=== PATIENT | female | born 2000 | race Caucasian/White ===

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

== ENCOUNTER → 2021-01-10 | Outpatient (REF) | payer OTHER ==
[2021-01-10 18:14] LABS: HEMATOCRIT 35.5 % (36.0-47.0); HEMOGLOBIN 12.3 g/dl (12.0-15.5); MEAN CORPUSCULAR HEMOGLOBIN 30.9 pg (27.0-33.0); MEAN CORPUSCULAR HGB CONC 34.6 g/dl (32.0-36.5); MEAN CORPUSCULAR VOLUME 89.2 fl (80.0-96.0); PLATELET COUNT, AUTOMATED 346 10^3/uL (150-450); RED BLOOD COUNT 3.98 10^6/uL (4.00-5.40); WHITE BLOOD COUNT 9.3 10^3/uL (4.0-10.0)
[2021-01-10 19:58] LABS: HEPATITIS C VIRUS ABY INDEX < 0.0 INDEX (<0.8)
[2021-01-13 09:08] LABS: HIV 1&2 SCREEN CENTAUR NEGATIVE (NEGATIVE)
== END ==
LOC: M PLALAB 15:16
PROVIDERS: ATTEND Obstetrics & Gynecology
DX: Z36.89 Encounter for other specified antenatal screening (principal); Z3A.09 9 weeks gestation of pregnancy

== ENCOUNTER → 2021-01-10 | Outpatient (CLI) | payer OTHER | LOC: M PLALAB 15:18 | PROVIDERS: ATTEND Allergy & Immunology Allergy | DX: T78.07XA Anaphylactic reaction due to milk and dairy products, initial encounter (principal) ==

== ENCOUNTER → 2021-01-13 | Outpatient (CLI) | payer OTHER | LOC: M PLALAB 13:27 | PROVIDERS: ATTEND Obstetrics & Gynecology | DX: Z34.82 Encounter for supervision of other normal pregnancy, second trimester (principal) ==

== ENCOUNTER → 2021-03-10 | Outpatient (CLI) | payer OTHER ==
--- NOTE | 2021-03-12 08:15 | REP ---
INDICATION: ANATOMY COMPARISON: None. TECHNIQUE: Transabdominal obstetrical ultrasound with color Doppler evaluation. FINDINGS: Examination demonstrates a single live intrauterine in cephalic presentation. motion is identified by technologist. Placenta is noted anterior and grade 0 without evidence for placenta previa or abruption. Amniotic fluid volume is normal. Cervix measures 4.5 cm in length and appears closed.. Selected gestational age: 21 weeks 3 days with TEQUILA 07/18/2021. Gestational age by current measurements 21 weeks 5 days with TEQUILA 07/16/2021. FHR equals 149 beats per minute. Estimated weight 445 grams (60thpercentile). Anatomical assessment demonstrates normal structures including cranium, choroid plexus, cavum, cerebellum/posterior fossa, facial features, lungs, four-chamber heart/ventricular outflow tracts, diaphragm, stomach, cord insertion/three-vessel cord, kidneys/bladder, spine, and extremities. IMPRESSION: Single live intrauterine in cephalic presentation demonstrating appropriate estimated weight anatomical assessment is complete and normal. <Electronically signed by Reed Ambrose > 03/12/21 [id number]
== END ==
LOC: M WHC 15:11
PROVIDERS: ATTEND Advanced Practice Midwife
DX: Z34.82 Encounter for supervision of other normal pregnancy, second trimester (principal)

== ENCOUNTER 2021-04-14 19:48 | Outpatient (CLI) | payer OTHER ==
[2021-04-14 20:01] VITALS: BP 109/63
[2021-04-14 21:16] LABS: HEMATOCRIT 31.7 % (36.0-47.0); HEMOGLOBIN 11.1 g/dl (12.0-15.5); MEAN CORPUSCULAR HEMOGLOBIN 31.6 pg (27.0-33.0); MEAN CORPUSCULAR VOLUME 90.3 fl (80.0-96.0); PLATELET COUNT, AUTOMATED 299 10^3/uL (150-450); RED BLOOD COUNT 3.51 10^6/uL (4.00-5.40); WHITE BLOOD COUNT 11.1 10^3/uL (4.0-10.0)
--- NOTE | 2021-04-14 22:40 | REPVR ---
PROCEDURE INFORMATION: Exam: US Biophysical Profile Without Non-Stress Test Exam date and time: 04/14/2021 10:13 PM Age: 21 years old Clinical indication: Other: Fall; ; Additional info: Post fall TECHNIQUE: Imaging protocol: US biophysical profile without non-stress testing. COMPARISON: OBS COMPLETE US 03/10/2021 3:20 PM FINDINGS: heart rate: heartbeat of 139 bpm. Presentation: Single live intrauterine fetus in breech presentation. Placenta: Anterior placenta. Amniotic fluid index: Normal CAESAR of 19.5 cm. BIOPHYSICAL PROFILE: Breathin/2 Gross body movements: 2/2 tone: 2/2 Qualitative amniotic fluid: 2/2 Biophysical Profile Score: 8/8 MATERNAL ANATOMY: Cervix: Closed cervix measuring 4.0 cm. Other findings: S/D of 3.0. IMPRESSION: 1. Single live intrauterine fetus in breech presentation. 2. Normal biophysical profile score of 8/8. Electronically signed by: Rene Dockery On 04/14/2021 22:40:18 PM
--- NOTE | 2021-04-14 23:27 | IPNPDOC ---
Text Note Date of Service The patient was seen on 04/14/21. NOTE Outpatient 21yo EDD1. Presents @ 26w3d post trip and fall. Reports landing on elbows and knees, uncertain if she hit her abdomen. Reports right abdominal discomfort. Denies LOF, bleeding. No distress. Abdomen soft, gravid FH reassuring for gestation for prolonged monitoring. No UC BPP 8/8, CAESAR 19.7. No evidence abruption KB negative Discharged home. Routine precautions. Keep next appt VS,Jacob, I+O VS, Jacob, I+O Laboratory Tests 04/14/21 21:09 Irma Gregg CNM Apr 14, 2021 23:27
== END 2021-04-14 23:25 | disposition home or self-care (01) ==
LOC: M LDO 19:48
PROVIDERS: ATTEND Advanced Practice Midwife
DX: O9A.212 Injury, poisoning and certain other consequences of external causes complicating pregnancy, second trimester (principal); S80.01XA Contusion of right knee, initial encounter; S80.02XA Contusion of left knee, initial encounter; S50.01XA Contusion of right elbow, initial encounter; S50.02XA Contusion of left elbow, initial encounter; W01.0XXA Fall on same level from slipping, tripping and stumbling without subsequent striking against object, initial encounter; Y92.009 Unspecified place in unspecified non-institutional (private) residence as the place of occurrence of the external cause; O26.892 Other specified pregnancy related conditions, second trimester; R10.9 Unspecified abdominal pain; Z3A.26 26 weeks gestation of pregnancy; O32.1XX0 Maternal care for breech presentation, not applicable or unspecified

== ENCOUNTER → 2021-05-19 | Outpatient (CLI) | payer OTHER ==
[2021-05-19 16:03] LABS: HEMATOCRIT 32.9 % (36.0-47.0); HEMOGLOBIN 10.8 g/dl (12.0-15.5); MEAN CORPUSCULAR HEMOGLOBIN 29.5 pg (27.0-33.0); MEAN CORPUSCULAR HGB CONC 32.8 g/dl (32.0-36.5); MEAN CORPUSCULAR VOLUME 89.9 fl (80.0-96.0); PLATELET COUNT, AUTOMATED 309 10^3/uL (150-450); RED BLOOD COUNT 3.66 10^6/uL (4.00-5.40); WHITE BLOOD COUNT 14.9 10^3/uL (4.0-10.0)
[2021-05-19 17:09] LABS: GC DNA AMPLIFICATION NEGATIVE (NEGATIVE)
== END ==
LOC: M PLALAB 13:03
PROVIDERS: ATTEND Advanced Practice Midwife
DX: Z34.82 Encounter for supervision of other normal pregnancy, second trimester (principal); Z3A.26 26 weeks gestation of pregnancy

== ENCOUNTER → 2021-06-27 | Outpatient (REF) | payer OTHER | LOC: M SFHCWAGY 17:16 | PROVIDERS: ATTEND Advanced Practice Midwife | DX: Z34.03 Encounter for supervision of normal first pregnancy, third trimester (principal) ==

== ENCOUNTER 2021-07-08 12:37 | Inpatient (IN) | payer OTHER ==
[~2021-07-08] VITALS: Ht 160 cm; Wt 77.2 kg
[2021-07-08 12:56] VITALS: BP 120/80
[2021-07-08] MEDS ORDERED: PENICILLIN G POTASSIUM IV 5 MU in D5W MINI-BAG PLUS 100 ML IV STA (16:52)
--- NOTE | 2021-07-08 16:59 | HPEPDOC ---
Obstetrical History & Physical General Date of Admission Jul 08, 2021 at 16:40 History of Present Illness 21 yo G1 at 38 4/7 weeks by LMP c/w 9 week ultrasound (EDC=07/18/2021) presents with regular contractions forthe last several hours. No loss of fluid. Small amount of vaginal bleeding. Information Provided By: Patient Age: 21 : 1 Term: 0 Pre-term: 0 Abortions: 0 Livin Care Care: Good Care Dating Final EDC: Jul 18, 2021 Final EDC by: LMP, 1st trimester (US) Past Medical History Past Obstetrical History : Past Obstetrical History: Primgravida Past Medical History Medical History None Surgical History: Denies/None Family History Significant Family History: No pertinent family hx Social History Marital Status: Single Family situation: Spouse/partner home Psychosocial History: No pertinent psych hx Allergies Coded Allergies: lactose (Verified Allergy, Unknown, 07/08/21) Medications No Active Prescriptions or Reported Meds Physical Examination Physical Examination GENERAL: Alert and oriented times three. BREAST: . ABDOMEN: Gravid and non-tender to touch. FETUS: Is vertex (VTX) by sterile vaginal examination (SVE), fetus is vertex (VTX) by Garret. HEART RATE: Regular rate and rhythm. LUNGS: Clear to auscultation (CTA). EXTREMITIES: No edema. No clonus. Deep tendon reflexes (DTRs) + . Vital Signs/I&O Vital Signs Date Time Temp Pulse Resp B/P (MAP) Pulse Ox O2 Delivery O2 Flow Rate FiO2 07/08/21 12:56 98.6 83 18 120/80 (93) Pertinent Laboratoy Data Blood Type: O+ Group B Streptococcus: Negative Vaginal Examination Dilation: 4 cm Effacement: 90% Station: -2 Cervical Consistency: Medium Cervical Position: Posterior Presentation: Cephalic presentation Assessment Variability: Moderate Accelerations: Positive Decelerations: None Tocometer Contractions: Yes Assessment/Plan Assessment Pt is a 21-year-old (G)1 para (P)0 at 38+4 weeks by LMP c/w 9 -week ultrasound presents to Labor and Delivery in labor. Plan Admit and orient. Stuntman and consent. Diet: liquids. Group B Streptococcus (GBS)positive Labs and intravenous (IV) per unit protocol. Anticipate normal spontaneous delivery () C-S as appropriate. LILIAN CHAPARRO MD Jul 08, 2021 16:59
[2021-07-08] MEDS ORDERED: LR 1,000 ML IV SCH (17:15)
[2021-07-08 17:39] LABS: HEMATOCRIT 36.8 % (36.0-47.0); HEMOGLOBIN 12.1 g/dl (12.0-15.5); MEAN CORPUSCULAR HEMOGLOBIN 27.8 pg (27.0-33.0); MEAN CORPUSCULAR HGB CONC 32.9 g/dl (32.0-36.5); MEAN CORPUSCULAR VOLUME 84.6 fl (80.0-96.0); PLATELET COUNT, AUTOMATED 262 10^3/uL (150-450); RED BLOOD COUNT 4.35 10^6/uL (4.00-5.40); WHITE BLOOD COUNT 12.4 10^3/uL (4.0-10.0)
[2021-07-08] MEDS ORDERED: OXYTOCIN DRIP 30 UNITS in IV 1 EA IV SCH (20:00)
[2021-07-08] MEDS ORDERED: PENICILLIN G POTASSIUM IV 2.5 MU in IV 1 EA IV SCH (21:15)
[2021-07-08] MEDS ORDERED: PROMETHAZINE INJ 25 MG/ML VIAL (J2550) IV ONE (23:05)
[2021-07-08] MEDS ORDERED: BUTORPHANOL 2 MG/ML INJ (J0595) IV ONE (23:05)
[2021-07-09] MEDS ORDERED: LIDOCAINE 1% MDV 20ML VIAL As Ordered ONE (03:28)
[2021-07-09] MEDS ORDERED: LIDOCAINE 1% MDV 20ML VIAL INFIL ONE (04:00)
[2021-07-09] MEDS ORDERED: MEASLES,MUMPS,RUBELLA VACCINE INJ (MMR-II) (90707) SC SCH (04:00)
[2021-07-09] MEDS ORDERED: OXYTOCIN DRIP 30 UNITS in IV 1 EA IV ONE (04:00)
[2021-07-09] MEDS ORDERED: ACETAMINOPHEN 500 MG TAB PO PRN (04:00)
[2021-07-09] MEDS ORDERED: DOCUSATE SODIUM 100MG CAPSULE PO PRN (04:00)
[2021-07-09] MEDS ORDERED: IBUPROFEN 600MG TAB PO PRN (04:00)
[2021-07-09] MEDS ORDERED: METHYLERGONOVINE MALEATE 0.2 MG TAB PO PRN (04:00)
[2021-07-09] MEDS ORDERED: RHOGAM 300 MCG (1500 IU) INJ (J2790) IM SCH (04:00)
[2021-07-09] MEDS ORDERED: ACETAMINOPHEN TAB 650MG DOSE (2X325MG) PO PRN (04:00)
--- NOTE | 2021-07-09 04:04 | DNPDOC ---
[facility] Delivery Note Delivery Note DATE OF DELIVERY: July 092020 PREDELIVERY DIAGNOSIS: 38-4/7 weeks' gestation and labor. POST DELIVERY DIAGNOSIS: Delivered. PROCEDURE: Spontaneous vaginal delivery. TICK ERADICATOR: Dr. Lilian Chaparro MD ANESTHESIA: None ESTIMATED BLOOD LOSS: 300 mL. FINDINGS: 6 pound 9 ounce female , Score 8/9, nuchal cord times 1. DELIVERY SUMMARY: Patient is a 21-year-old 1 now para 1 who was admitted to labor and delivery for labor. She required Pitocin augmentation. She progressed to become fully dilated. She had spontaneous rupture of membranes. After a 15-minute second stage of labor she had spontaneous vaginal delivery of a 6 pound 9 ounce female . Loose nuchal cord x1 was delivered through. Shoulders delivered with ease. The was handed to the mother. The cord subsequently clamped and cut. The placenta delivered spontaneously and appeared to be intact. The patient received IV Pitocin immediately after delivery of placenta. Second-degree perineal laceration repaired under local anesthesia with 2-0 chromic in the usual fashion. Sponge and needle counts were correct. LILIAN CHAPARRO MD Jul 09, 2021 04:04
[2021-07-09 06:00] VITALS: BP 124/80
[2021-07-09] MEDS: PRENATAL VITAMINS CHEWABLE TABLET PO SCH (09:04)
[2021-07-09] MEDS: IBUPROFEN 800 MG TAB PO PRN (14:07)
[2021-07-09 18:02] VITALS: BP 144/81
[2021-07-10 06:00] VITALS: BP 110/56
[2021-07-10] MEDS: PRENATAL VITAMINS CHEWABLE TABLET PO SCH (07:49)
[2021-07-10] MEDS: IBUPROFEN 800 MG TAB PO PRN (07:49)
[2021-07-10 08:10] VITALS: BP 110/56
--- NOTE | 2021-07-10 12:24 | IPNPDOC ---
Progress Note Date of Service: Jul 10, 2021 Day#: 1 Progress Note SUBJECT: Emily is a 21-year-old 1 now Para 1001 status post uncomp licated spontaneous vaginal delivery at 38-4/7 weeks' on 07/09/2021 of a live female 6 pounds 9 ounces with post 2nd degree vaginal laceration and repair, doing well day # 1. She has been ambulating, voiding spontaneously without issue and tolerating regular diet. Breast feeding without issue. Reports lochia is like a normal period. Patient is ambulating well. Reports some cramping with . Denies any pain. Voiding and stooling without difficulty. OBJECTIVE: VITAL SIGNS: Within normal limits, afebrile. Alert and oriented times three. Breathing comfortably on room air. Abdomen: Fundus firm at U-2. Soft, NTTP. Minimal lochia. ASSESSMENT: Day 1 PLAN: 1. Continue supportive nursing care and anticipate discharge home tomorrow. VS, I&O, 24H, Fishbone Vital Signs/I&O Vital Signs Date Time Temp Pulse Resp B/P (MAP) Pulse Ox O2 Delivery O2 Flow Rate FiO2 07/10/21 08:10 97.1 60 18 110/56 SUDARSHAN NIEVES CNM Jul 10, 2021 12:24
[2021-07-10 18:08] VITALS: BP 124/77
[2021-07-11 06:00] VITALS: BP 123/68
[2021-07-11] MEDS ORDERED: ACET-683 PO (07:51)
[2021-07-11] MEDS ORDERED: IBUP80TA PO (07:51)
[2021-07-11] MEDS: PRENATAL VITAMINS CHEWABLE TABLET PO SCH (09:00)
== END 2021-07-11 12:30 | disposition home or self-care (01) | DRG 560 ==
LOC: M LDO 12:37 → M LDI 16:40 → M OBS 07-09 05:00
PROVIDERS: ADMIT Specialist; ATTEND Specialist
PROC: 10E0XZZ Delivery of Products of Conception, External Approach (ICD-10-PCS; principal; 2021-07-09)
PROC: 0KQM0ZZ Repair Perineum Muscle, Open Approach (ICD-10-PCS; 2021-07-09)
DX: O99.820 Streptococcus B carrier state complicating pregnancy (principal); O69.81X0 Labor and delivery complicated by cord around neck, without compression, not applicable or unspecified; Z37.0 Single live birth; Z3A.38 38 weeks gestation of pregnancy; O70.1 Second degree perineal laceration during delivery